=== PATIENT | female | born 1955 | race Caucasian/White ===

== ENCOUNTER → 2016-12-20 | Outpatient (CLI) | payer BC, OTHER ==
--- NOTE | 2016-12-20 12:26 | US ---
EXAMINATION TYPE: US abdomen complete DATE OF EXAM: 12/20/2016 7:46 AM COMPARISON: 2011 CLINICAL HISTORY: 61-year-old female R10.84 Generalized abdominal pain,R94.5 high LFT. Cholecystomy TECHNIQUE: Multiple sonographic images of the abdomen were obtained. FINDINGS: BEAM DOFFER NOTES: Large body habitus, pt is sensitive to any touch on body Liver Length: 14.6 cm CBD: 4 mm Spleen: 11.2 cm Right Kidney: 10.5 x 3.8 x 5.1 cm Left Kidney: 10.4 x 4.4 x 4.8 cm Pancreas: Only a portion of the pancreatic neck and body are seen. Remainder suboptimally visualized secondary to shadowing from bowel gas. Liver: Echogenic and attenuating. Limited assessment as the patient is unable to follow breath-hold c ommands and is sensitive to touch on body Gallbladder: Surgically absent CBD: wnl Spleen: wnl Right Kidney: No hydronephrosis. Left Kidney: No hydronephrosis. Upper IVC: wnl Abd Aorta: wnl IMPRESSION: 1. Correlate for possible hepatic steatosis. There is limited assessment as the patient could not fol low breathing commands and was sensitive to touch. 2. Status post cystectomy. No biliary ductal dilatation.
== END | disposition home or self-care (01) ==
LOC: RADUSWWP 07:25
PROVIDERS: ATTEND Internal Medicine
DX: R10.84 Generalized abdominal pain (principal); R94.5 Abnormal results of liver function studies; Z90.6 Acquired absence of other parts of urinary tract
CPT/HCPCS: 76700

== ENCOUNTER → 2018-08-27 | Outpatient (CLI) | payer OTHER ==
--- NOTE | 2018-08-28 08:28 | CT ---
EXAMINATION TYPE: CT abdomen wo con DATE OF EXAM: 08/27/2018 COMPARISON: Abdominal ultrasound dated 12/20/2016 HISTORY: Right upper quadrant abdominal pain. CT DLP: 725 mGycm Automated exposure control for dose reduction was used. TECHNIQUE: Helical acquisition of images was performed from the lung bases through the top of iliac crest to include entire abdomen. CONTRAST: Performed with Oral Contrast and without IV contrast. FINDINGS: Lack of oral and intravenous contrast limit evaluation of the hollow and solid viscera. LUNG BASES: No significant abnormality is appreciated. LIVER/GB: The liver approaches criteria but does not meet criteria for hepatic steatosis. No focal he patic masses are seen on today's examination. No intrahepatic biliary ductal dilatation. Gallbladder surgically absent. PANCREAS: No significant abnormality is seen. SPLEEN: Splenic arterial calcifications are seen. Spleen is grossly unremarkable. ADRENALS: No significant abnormality is seen. KIDNEYS: There is a lobulated contour of both kidneys although suboptimally evaluated without contras t. No hydronephrosis or nephrolithiasis. No hydroureter. BOWEL: Moderate amount retained colonic stool is seen. LYMPH NODES: No greater than 1 cm short axis intra-abdominal lymph nodes are seen. Few clustered non enlarged right lower quadrant lymph nodes are present. Right lower quadrant lymph node on series 3 im age 50 measures 5 mm and on image 45 measures 6 mm. OSSEOUS STRUCTURES: Mild multilevel degenerative change of the spine is seen.. FREE AIR: No free air is visualized. OTHER: There is a Spigelian hernia contains fat, a surgical clip, and a 1.8 x 0.9 cm ovoid multilobul ated soft tissue density adjacent to the surgical clip. IMPRESSION: 1. RIGHT LATERAL FAT-CONTAINING Spigelian hernia THAT ALSO CONTAINS A SURGICAL CLIP ADJACENT TO A LOB ULATED OVOID 1. 8 BY 0.9 CM MASS. THIS COULD REPRESENT FAT NECROSIS THERE IS AN ADJACENT SURGICAL CLIP OR AN ABNORMAL LYMPH NODE. CORRELATE WITH PRIOR SURGICAL HISTORY. 3. THERE ARE NO ENLARGED LYMPH NODES WITHIN THE ABDOMEN HOWEVER TO LYMPH NODES ARE SEEN ALONG THE ANT IMESENTERIC BORDER IN THE RIGHT LOWER QUADRANT, A SLIGHTLY ATYPICAL LOCATION AND SHORT-TERM FOLLOW-UP IN 3 MONTHS COULD BE PERFORMED FOR THIS ABNORMALITY. 2. LIVER APPROACHES CRITERIA BUT DOES NOT MEET CRITERIA FOR HEPATIC STEATOSIS QUESTIONED ON THE [place] I[place] ULTRASOUND.
== END | disposition home or self-care (01) ==
LOC: RADCTMAIN 15:47
PROVIDERS: ATTEND Internal Medicine
DX: K43.9 Ventral hernia without obstruction or gangrene (principal); Z88.0 Allergy status to penicillin; Z88.2 Allergy status to sulfonamides; Z88.1 Allergy status to other antibiotic agents
CPT/HCPCS: 74150

== ENCOUNTER → 2018-09-05 | Outpatient (CLI) | payer OTHER | END | disposition home or self-care (01) | LOC: LABPAT 14:24 | PROVIDERS: ATTEND Surgery | DX: Z01.818 Encounter for other preprocedural examination (principal); K43.2 Incisional hernia without obstruction or gangrene; Z01.812 Encounter for preprocedural laboratory examination | CPT/HCPCS: 93005 ==

== ENCOUNTER 2018-09-10 06:38 | Day surgery (SDC) | payer OTHER ==
[~2018-09-10 06:38] MED LIST: HEPARIN SODIUM,PORCINE 5,000 UNIT/ML 1 ML VIAL SQ ONE; ceFAZolin IN SWFI 2 GM/20 ML SYRINGE IVP ONE
[2018-09-10] MEDS ORDERED: SCOPOLAMINE 1.5MG/72HR PATCH TRANSDERM ONE (06:47)
[2018-09-10] MEDS ORDERED: ONDANSETRON 4 MG/2 ML VIAL IVP ONE (06:47)
[2018-09-10] MEDS ORDERED: HYDROmorphone 0.5 MG/0.5 ML SYRINGE IVP PRN ×2 (06:47→13:41)
[2018-09-10] MEDS ORDERED: LIDOCAINE 1% 20 ML VIAL (10MG/ML) FOR IV START INTRADERMA PRN (06:47)
[2018-09-10] MEDS ORDERED: DEXAMETHASONE SOD PHOSPHATE 10 MG/ML 1 ML VIAL IV ONE (06:47)
[2018-09-10] MEDS ORDERED: LACTATED RINGERS 1,000 ML IV SCH (06:47)
[2018-09-10] MEDS ORDERED: MIDAZOLAM (PF) 2 MG/2 ML VIAL IVP ONE (08:03)
[2018-09-10] MEDS ORDERED: ePHEDrine SULFATE/0.9% NACL/PF 50 MG/5 ML SYRINGE IV ONE (08:28)
[2018-09-10] MEDS ORDERED: LIDOCAINE 1% INJ 10MG/ML (20 ML MDV) ONE (08:28)
[2018-09-10] MEDS ORDERED: MIDAZOLAM 2 MG/2 ML VIAL ONE (08:28)
[2018-09-10] MEDS ORDERED: ROCURONIUM BROMIDE 10 MG/ML 10 ML VIAL IV ONE (08:28)
[2018-09-10] MEDS ORDERED: PROPOFOL 10 MG/ML 20 ML VIAL IV ONE (08:28)
[2018-09-10] MEDS ORDERED: NEOSTIGMINE 1 MG/ML 10 ML VIAL ONE (08:28)
[2018-09-10] MEDS ORDERED: fentaNYL (PF) 50 MCG/ML 2 ML AMP ONE (08:28)
[2018-09-10] MEDS ORDERED: GLYCOPYRROLATE 0.2 MG/ML 2 ML VIAL ONE (08:28)
[2018-09-10] MEDS ORDERED: SUCCINYLCHOLINE CHLORIDE 100 MG/5 ML SYR IV ONE (08:28)
[2018-09-10] MEDS ORDERED: HYDROmorphone (PF) 1 MG/ML ONE (08:28)
[2018-09-10] MEDS ORDERED: BUPIVACAIN-EPI 0.25%-1:200,000 30 ML VIAL SQ ONE (09:01)
[2018-09-10] MEDS ORDERED: LACTATED RINGERS 1,000 ML IV ONE ×4 (09:17→14:52)
--- NOTE | 2018-09-10 10:18 | P.OP ---
Date of Procedure: 09/10/18 Preoperative Diagnosis: Incarcerated incisional hernia Postoperative Diagnosis: Incarcerated incisional hernia Procedure(s) Performed: Laparoscopic robotic-assisted repair of incarcerated incisional hernia Partial omentectomy Anesthesia: RIVER Surgeon: Pieter Dobson Estimated Blood Loss (ml): 5 Pathology: other (Omentum) Condition: stable Disposition: PACU Description of Procedure: The patient was placed on the operating table in the supine position. The patient received general anesthesia. The patient's abdomen was prepped and draped usual fashion. Using a 5 mm optical trocar under direct visualization the peritoneal cavity was entered in the left upper quadrant. The abdomen was then insufflated. The laparoscope was placed back into the perineal cavity. Next a 8 mm robotic trocar was placed in the right lower quadrant and a 12 mm robotic trocar was placed in the left lower lateral position. And then another 8 mm trocar was placed in the left lateral position. r. The patient's placed in the left side up position. The patient's hernia was in the right lateral position related to previous laparoscopic trocar for cholecystectomy. And the patient was docked to the robot. The incisional hernia was visualized. Using hook cautery the peritoneum over the incisional hernia was excised. The incarcerated omentum was dissected free from the hernia. A portion of the nonviable omentum was transected with left cautery. The fascial opening was repaired using 0V LOC suture. Next a piece of 11 cm round ventral light ST mesh was placed into the. Cavity and secured with 2 OV lock suture. The patient was undocked the robot. The needles were retrieved. The omentum was treated. The fascia of the 12 mm trocar site was closed with 0 Ethibond suture. Skin was closed interrupted 3-0 Monocryl suture. Dermabond dressings was applied. Patient tolerated procedure well and was sent to recovery room stable condition.
--- NOTE | 2018-09-10 10:20 | P.GSHP ---
History of Present Illness H&P Date: 09/10/18 Chief Complaint: Incarcerated incisional hernia This a 63-year-old female who's developed an incarcerated incisional hernia located a right lateral abdominal wall. The hernia appears to be related to the previous laparoscopic cholecystectomy trocar incision. Patient developed an increasing mass in this area. The hernia measures prostate 5 cm in diameter. 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 Smoking Status: Never smoker - Past Family History Father Family Medical History: Cancer Additional Family Medical History / Comment(s): throat cancer Medications and Allergies Home Medications Medication Instructions Recorded Confirmed Type Metoprolol Tartrate 25 mg PO BID 01/03/15 09/10/18 History Cholecalciferol [Vitamin D3] 5,000 unit PO DAILY 09/05/18 09/10/18 History Cyanocobalamin (Vitamin B-12) 1,000 mcg PO DAILY 09/05/18 09/10/18 History [Vitamin B-12] Meclizine [Antivert] 12.5 mg PO DAILY PRN 09/05/18 09/10/18 History Naproxen Sodium [Aleve] 220 mg PO DAILY 09/05/18 09/10/18 History Docusate [Colace] 100 mg PO BID #20 capsule 09/10/18 Rx HYDROcodone/APAP 7.5-325MG [[place] 1 tab PO Q4H PRN 3 Days #18 tab 09/10/18 Rx 7.5-325] Allergies Allergy/AdvReac Type Severity Reaction Status Date / Time meperidine HCl [From Demerol] Allergy Nausea & Verified 01/11/15 13:02 Vomiting Penicillins Allergy Rash/Hives Verified 01/11/15 13:02 Sulfa (Sulfonamide Allergy Swelling Verified 09/05/18 13:26 Antibiotics) tramadol Allergy Nausea & Verified 01/11/15 13:02 Vomiting Surgical - Exam Vital Signs Temp Pulse Resp BP Pulse Ox 98.0 F 76 16 182/102 96 09/10/18 07:22 09/10/18 07:22 09/10/18 07:22 09/10/18 07:22 09/10/18 07:22 - General well developed, well nourished, no distress - Eyes PERRL - ENT normal pinna - Neck no masses - Respiratory normal expansion - Cardiovascular Rhythm: regular - Abdomen Abdomen: soft, non tender Hernia: incisional (5 cm incisional hernia located in the right abdominal wall) Assessment and Plan Assessment: Incisional hernia. We'll perform laparoscopic robotic-assisted repair.
[2018-09-10] MEDS ORDERED: diphenhydrAMINE 50 MG/ML 1 ML VIAL IVP ONE (10:22)
[2018-09-10] MEDS ORDERED: KETOROLAC 30 MG/ML 1 ML VIAL IVP ONE (10:23)
[2018-09-10] MEDS ORDERED: ACETAMINOPHEN TAB 325 MG TAB PO ONE (11:53)
[2018-09-10] MEDS ORDERED: HYDROcodone/APAP 7.5-325MG 1 EACH TAB PO ONE (13:21)
[2018-09-10] MEDS ORDERED: NALOXONE 0.4 MG/ML 1 ML VIAL IV PRN (13:41)
[2018-09-10] MEDS ORDERED: ONDANSETRON 4 MG/2 ML VIAL IVP PRN (13:41)
[2018-09-10] MEDS ORDERED: traMADol 50 MG TAB PO PRN (13:41)
[2018-09-10] MEDS ORDERED: HYDROcodone/APAP 5-325MG 1 EACH TAB PO PRN (13:41)
[2018-09-10] MEDS ORDERED: PROMETHAZINE INJ 25 MG/ML 1 ML VIAL IVPB ONE (14:04)
[2018-09-10] MEDS: ACETAMINOPHEN TAB 325 MG TAB PO PRN ×2 (16:22→21:43)
[2018-09-10 17:38] VITALS: BMI 39.6
--- NOTE | 2018-09-10 21:51 | P.CONS ---
History of Present Illness - Reason for Consult Consult date: 09/10/18 Medical management - Chief Complaint Incarcerated incisional hernia - History of Present Illness Patient is a 63-year-old female with a known history of hypertension, osteoarthritis was admitted to the hospital due to incarcerated incisional hernia and repair. Patient developed incarcerated incisional hernia on the right lateral abdominal wall likely related to previous laparoscopic cholecystectomy incision. Patient tolerated procedure very well. Currently denied any complaints of chest pain or shortness of breath. Pain is fairly controlled. Patient does not want any Ves[place] and pain medications otherwise. No fever no chills. Patient does take metoprolol for blood pressure and is also on follow-up with cardiology clinic. Review of Systems Constitutional: Patient denies any fever or chills . No generalized weakness or weight loss. Abdomen: Patient denied nausea vomiting and diarrhea and abdominal pain. Cardiovascular: Patient denies any chest pain or short of breath no palpitations. Respiratory: patient denied any cough is from production. No shortness of breath Neurologic: Patient denied any numbness or tingling headache. Musculoskeletal: Patient denies any complaints of joint swelling or deformity. Skin: Negative Psychiatric: Negative Endocrine: No heat or cold intolerance. No recent weight gain. Genitourinary: No dysuria or hematuria. 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 Smoking Status: Never smoker - Past Family History Father Family Medical History: Cancer Additional Family Medical History / Comment(s): throat cancer Medications and Allergies Home Medications Medication Instructions Recorded Confirmed Type Metoprolol Tartrate 25 mg PO BID 01/03/15 09/10/18 History Cholecalciferol [Vitamin D3] 5,000 unit PO DAILY 09/05/18 09/10/18 History Cyanocobalamin (Vitamin B-12) 1,000 mcg PO DAILY 09/05/18 09/10/18 History [Vitamin B-12] Meclizine [Antivert] 12.5 mg PO DAILY PRN 09/05/18 09/10/18 History Naproxen Sodium [Aleve] 220 mg PO DAILY 09/05/18 09/10/18 History Docusate [Colace] 100 mg PO BID #20 capsule 09/10/18 Rx HYDROcodone/APAP 7.5-325MG [[place] 1 tab PO Q4H PRN 3 Days #18 tab 09/10/18 Rx 7.5-325] Allergies Allergy/AdvReac Type Severity Reaction Status Date / Time meperidine HCl [From Demerol] Allergy Nausea & Verified 09/10/18 17:41 Vomiting Penicillins Allergy Rash/Hives Verified 09/10/18 17:41 Sulfa (Sulfonamide Allergy Swelling Verified 09/10/18 17:41 Antibiotics) tramadol Allergy Nausea & Verified 09/10/18 17:41 Vomiting Physical Exam Vitals: Vital Signs Temp Pulse Resp BP BP Pulse Ox 09/10/18 14:39 94 18 136/82 96 09/10/18 13:44 95 16 136/82 97 09/10/18 12:04 77 18 144/82 96 09/10/18 11:49 82 16 144/84 96 09/10/18 11:34 84 16 146/84 92 L 09/10/18 11:24 82 16 136/81 92 L 09/10/18 11:09 76 16 144/70 93 L 09/10/18 10:54 70 16 147/76 94 L 09/10/18 10:39 68 16 138/74 96 09/10/18 10:24 68 16 133/70 97 09/10/18 10:09 67 16 132/61 97 09/10/18 09:54 97.7 F 68 14 114/69 94 L 09/10/18 07:22 98.0 F 76 16 182/102 96 Intake and Output 09/10/18 09/10/18 09/10/18 06:59 14:59 22:59 Intake Total 2960 Output Total 5 Balance 2955 Intake: IV 2960 Output: Estimated Blood Loss 5 PHYSICAL EXAMINATION: Patient is lying in the bed comfortably, no acute distress, awake alert and oriented.. HEENT: Normocephalic. Neck is supple. Pupils reactive. Nostrils clear. Oral cavity is moist. Ears reveal no drainage. Neck reveals no JVD, carotid bruits, or thyromegaly. CHEST EXAMINATION: Trachea is central. Symmetrical expansion. Lung richter clear to auscultation and percussion. CARDIAC: Normal S1, S2 with no gallops. No murmurs ABDOMEN: Soft. Bowel sounds present. No organomegaly. No abdominal bruits. Surgical site is bandaged. Extremities: reveal no edema. No clubbing or cyanosis Neurologically awake, alert, oriented x3 with well-coordinated movements. No focal deficits noted Skin: No rash or skin lesions. Psychiatric: Coperative. Nonsuicidal Musculoskeletal: No joint swelling or deformity. Normal range of motion. Assessment and Plan Assessment: Status post repair of incarcerated right lateral abdominal wall incisional hernia. Postoperative day 0 Hypertension Tachycardia Osteoarthritis with history of joint replacement History of cholecystectomy DVT prophylaxis. Lovenox subcu Plan: Patient will be continued on pain management with Dilaudid and Vesuvius. Continue with home blood pressure medications in the form of metoprolol 25 mg twice a day. Continue the IV hydration and DVT prophylaxis. Incentive spirometry. Further recommendations based on clinical course. Thank you for your consult.
[2018-09-11] MEDS: ACETAMINOPHEN TAB 325 MG TAB PO PRN ×2 (04:00→10:08)
[2018-09-11] MEDS ORDERED: METOPROLOL TARTRATE 25 MG TAB PO SCH (09:00)
[2018-09-11] MEDS ORDERED: ENOXAPARIN 40 MG/0.4 ML SYRINGE SQ SCH (09:00)
[2018-09-11 11:34] VITALS: BP 126/76; PULSE 62; RESP 18; TEMP 98.1
--- NOTE | 2018-09-11 12:11 | P.DS ---
Providers Date of admission: 09/10/2018 Expected date of discharge: 09/11/18 Attending physician: Pieter Dobson Consults: 09/10/18 13:43 Consult Physician Routine Consulting Provider: Frandy Gallardo Consult Reason/Comments: Medical management Do you want consulting provider notified?: Yes Primary care physician: Chino Coppola Hospital Course: This is a 63-year-old female who underwent laparoscopic robotic-assisted repair of incarcerated incisional hernia. Patient was admitted to the hospital postoperatively for pain control. Her postoperative stay was a marble. Please see hospital chart for details. Procedures: Laparoscopic robotic system repair of incisional hernia Patient Condition at Discharge: Good Plan - Discharge Summary Discharge Rx Participant: No New Discharge Prescriptions: New Docusate [Colace] 100 mg PO BID #20 capsule HYDROcodone/APAP 7.5-325MG [[place] 7.5-325] 1 tab PO Q4H PRN 3 Days #18 tab PRN Reason: Pain No Action Metoprolol Tartrate 25 mg PO BID Naproxen Sodium [Aleve] 220 mg PO DAILY Cyanocobalamin (Vitamin B-12) [Vitamin B-12] 1,000 mcg PO DAILY Cholecalciferol [Vitamin D3] 5,000 unit PO DAILY Meclizine [Antivert] 12.5 mg PO DAILY PRN PRN Reason: Vertigo Discharge Medication List Metoprolol Tartrate 25 mg PO BID 01/03/15 [History] Cholecalciferol [Vitamin D3] 5,000 unit PO DAILY 09/05/18 [History] Cyanocobalamin (Vitamin B-12) [Vitamin B-12] 1,000 mcg PO DAILY 09/05/18 [ History] Meclizine [Antivert] 12.5 mg PO DAILY PRN 09/05/18 [History] Naproxen Sodium [Aleve] 220 mg PO DAILY 09/05/18 [History] Docusate [Colace] 100 mg PO BID #20 capsule 09/10/18 [Rx] HYDROcodone/APAP 7.5-325MG [[place] 7.5-325] 1 tab PO Q4H PRN 3 Days #18 tab 09/10 [Rx] Follow up Appointment(s)/Referral(s): Pieter Dobson MD [STAFF PHYSICIAN] - 09/17/18 8:50 am Patient Instructions/Handouts: *Surgery [facility] - (Anesthesia) Discharge Instructions Outpatient Surgery, Umbilical Hernia (DC) Activity/Diet/Wound Care/Special Instructions: regular diet as tolerated. fluids always encouraged no heavy lifting. nothing strenuous shower daily. continue to wear abdominal binder until recheck Call office for any fever, chills, increased pain not covered with over the counter pain meds, increased redness or discolored drainage from puncture sites or any concerns. continue to use Incentive spirometery at home. Per DR Bronson leavitt to use plain tylenol or aleve at home for pain in place of narcotic. ( due to pt sensitivity)
== END 2018-09-11 12:11 | disposition home or self-care (01) ==
LOC: OR 06:38 → 6PED 09:58 → OR 09-11 12:11
PROVIDERS: ATTEND Surgery
DX: K43.0 Incisional hernia with obstruction, without gangrene (principal); I10 Essential (primary) hypertension; M19.90 Unspecified osteoarthritis, unspecified site; F41.9 Anxiety disorder, unspecified; R42 Dizziness and giddiness; Z88.0 Allergy status to penicillin; Z88.2 Allergy status to sulfonamides; Z88.5 Allergy status to narcotic agent; Z88.8 Allergy status to other drugs, medicaments and biological substances; Z96.651 Presence of right artificial knee joint; Z79.1 Long term (current) use of non-steroidal anti-inflammatories (NSAID); Z79.899 Other long term (current) drug therapy; Z90.49 Acquired absence of other specified parts of digestive tract
CPT/HCPCS: 86900; 86901; 86850; 36415; 49655; C1781; J2250 ×2; J1200; J1644; J1100; J2550; J2710; J2405; J2001; J3010; J1885; J1170; J0330; J2704; J0690; 88305

== ENCOUNTER → 2019-08-15 | Outpatient (CLI) | payer OTHER ==
--- NOTE | 2019-08-15 16:55 | CT ---
EXAMINATION TYPE: CT abdomen pelvis wo con DATE OF EXAM: 08/15/2019 COMPARISON: CT abdomen dated 08/27/2018 HISTORY: Rt flank pain by ribs/breast. Hx hernia repair CT DLP: 1140.40 mGycm Automated exposure control for dose reduction was used. TECHNIQUE: Helical acquisition of images was performed from the lung bases through the pelvis. FINDINGS: LUNG BASES: There is a right middle lobe 5 mm solid pulmonary nodule on series 3 image 1 that is part ially visualized. Pleural parenchymal scarring is seen at the left lung base with more nodular compon ent medially on image 19 measuring 7 mm. LIVER/GB: The previously seen hepatic steatosis has improved. Criteria for hepatic steatosis are no l onger met although values are borderline. The gallbladder is surgically absent. PANCREAS: No significant abnormality is seen. SPLEEN: No significant abnormality is seen. Calcified splenic artery versus small pseudoaneurysm luis uring 9 mm. ADRENALS: No significant abnormality is seen. KIDNEYS: Again there is a lobulated contour of both kidneys, suboptimally evaluated without contrast. Masses are not excluded without contrast. Punctate 2 mm left upper pole nonobstructing calculus is s een. No hydronephrosis. FREE AIR: No free air is visualized ADENOPATHY: No greater than 1 cm short axis lymph node is seen in the abdomen or pelvis. OSSEOUS STRUCTURES: Mild multilevel degenerative change of the spine are seen. BOWEL: There are scattered sigmoid diverticula without pericolonic fat stranding. Mild degree coloni c fecal stasis is seen. No dilated large or small bowel. OTHER: There has been surgical repair of the previously seen right lateral flank hernia. Subcutaneous scarring is noted. There is a very small one 2 mm fat filled periumbilical hernia. IMPRESSION: 1. SURGICALLY REPAIRED RIGHT LATERAL ABDOMINAL WALL HERNIA. 2. PREVIOUSLY SEEN PROMINENT LYMPH NODES IN THE RIGHT LOWER QUADRANT ARE STABLE AND NONENLARGED. 3. AGAIN THE LIVER APPROACHES BUT DOES NOT MEET CRITERIA FOR HEPATIC STEATOSIS QUESTIONED ON THE P RIOR ULTRASOUND. 4. SIGMOID DIVERTICULOSIS WITHOUT EVIDENCE OF ACUTE DIVERTICULITIS. 5. PUNCTATE NONOBSTRUCTING LEFT UPPER POLE RENAL CALCULUS.
== END | disposition home or self-care (01) ==
LOC: RADCTMAIN 12:43
PROVIDERS: ATTEND Internal Medicine
DX: K46.9 Unspecified abdominal hernia without obstruction or gangrene (principal); K57.30 Diverticulosis of large intestine without perforation or abscess without bleeding; N20.0 Calculus of kidney; Z98.890 Other specified postprocedural states; Z88.0 Allergy status to penicillin; Z88.2 Allergy status to sulfonamides; Z88.5 Allergy status to narcotic agent
CPT/HCPCS: 74176

== ENCOUNTER → 2019-09-18 | Outpatient (CLI) | payer OTHER ==
--- NOTE | 2019-09-18 15:20 | CT ---
EXAMINATION TYPE: CT chest wo con DATE OF EXAM: 09/18/2019 COMPARISON: None HISTORY: Right sided chest pain. CT DLP: 334 mGycm, Automated exposure control for dose reduction was used. CONTRAST: None TECHNIQUE: Axial images were obtained at 1 mm thick sections at 10 mm intervals. This will limit po rtions of the examination which may not be visualized within the [id number]. Images were obtained in the prone and supine views. FINDINGS: Portion of the thyroid visualized is normal. There are couple of calcified granuloma within the posterior lateral right midlung. There is a small peripheral density measuring 0.3 cm in the right middle lobe. Series 10 image 29. There are multiple lymph nodes within the mediastinum. Some of these are prominent such as a 1.1 cm lymph node in the pretracheal space. A 1.3 cm lymph node is in the superior pretracheal space adjacen t to the aortic arch. Majority of these appear shotty less than 1 cm in diameter. There is an enlarge d subcarinal density measuring 2.1 cm. Some fullness at the right hilum could be some underlying jero opathy or mass. The ascending aorta diameter at the level of the main pulmonary artery is 3.9 cm. The main pulmonary artery diameter at the bifurcation is 3.[address] sections are obtained through the upper abdomen. Abdomen is essentially unremarkable. IMPRESSIONS: 1. Scattered mediastinal lymph nodes some of which are enlarged by CT criteria. Additional complete e valuation is recommended with standard CT chest with contrast, if not contraindicated, for complete e valuation for the mediastinum at this time. 2. Small peripheral right middle lobe density. This should be followed up in 6 months.
== END | disposition home or self-care (01) ==
LOC: RADCTMAIN 14:05
PROVIDERS: ATTEND Internal Medicine
DX: J98.4 Other disorders of lung (principal); R59.0 Localized enlarged lymph nodes; Z88.0 Allergy status to penicillin; Z88.2 Allergy status to sulfonamides; Z88.5 Allergy status to narcotic agent
CPT/HCPCS: 71250

== ENCOUNTER → 2019-09-26 | Outpatient (CLI) | payer OTHER ==
--- NOTE | 2019-09-27 23:46 | CT ---
EXAMINATION TYPE: CT chest w con DATE OF EXAM: 09/26/2019 COMPARISON: HRCT 09/18/2019 HISTORY: 64-year-old female Right lower chest pain TECHNIQUE: Contiguous axial scanning of the chest after the administration of 100 mL of Isovue 300. Coronal/sagittal reconstructions performed. CT DLP: 640.8mGycm. Automatic exposure control utilized for a dose reduction. FINDINGS: Heart normal size without pericardial effusion. Aorta normal caliber with conventional branching anatomy. Mediastinal lymphadenopathy is confirmed. Upper right paratracheal lymph nodes measuring up to 1.1 cm. Lower right paratracheal lymph nodes measuring up to 1.2 cm. AP window lymph node at 9 mm. Subcarinal lymph node at 2.2 cm. Right hilar lymph node measuring 1.8 cm. Left hilar lymph nodes measuring up to 1.3 cm. Evaluation of the lungs shows a calcified granuloma peripheral right midlung. A few scattered foreign 5 mm pulmonary nodules. On the right, these are either located along the subpleural region or along the major fissure. There is a single 4 mm peripheral left upper lobe pulmonary nodule, axial image 16, not in a perilymp hatic location. Tiny hiatal hernia. Spleen upper limits of normal in size at 13.1 cm. Cholecystectomy clips. Bones: [facility] within the mid to lower thoracic spine. IMPRESSION: 1. Confirmation of mediastinal and bilateral hilar lymphadenopathy measuring up to 2.2 cm. Sarcoidos is, systemic mycobacterial/fungal infections, pneumoconiosis, lymphoma, and metastatic disease are in the differential. 2. Given a few 5 mm pulmonary nodules either subpleural or along the major fissure (perilymphatic dis tribution), sarcoidosis may be higher in the differential. Appropriate further workup and evaluation recommended. 3. Additional 4 mm left upper lobe pulmonary nodule. Three-month follow-up CT to reassess all of thes e findings. 4. Tiny hiatal hernia.
== END ==
LOC: RADCTMAIN 07:47
PROVIDERS: ATTEND Internal Medicine
DX: D86.9 Sarcoidosis, unspecified (principal); A31.9 Mycobacterial infection, unspecified; B49 Unspecified mycosis; R91.1 Solitary pulmonary nodule; R59.0 Localized enlarged lymph nodes
CPT/HCPCS: 71260; Q9967

== ENCOUNTER → 2019-10-20 | Outpatient (CLI) | payer OTHER ==
[2019-10-20 18:42] LABS: African American GFR (CKD) 106.1 (60.0-200.0); Albumin 4.7 g/dL (3.80-4.90); Albumin/Globulin Ratio 2.04 (1.60-3.17); Anion Gap 11.8 mmol/L (4.00-12.00); BUN/Creat Ratio 25.71 Ratio (12.00-20.00); C Reactive Protein, High Sens 2.27 mg/L (0.000-3.000); Calcium 9.8 mg/dL (8.7-10.3); Carbon Dioxide 24.2 mmol/L (21.6-31.8); Globulin 2.3 g/dL (1.6-3.3); Non-African American GFR(CKD) 91.6 (60.0-200.0); Potassium 4.2 mmol/L (3.5-5.5); Total Bilirubin 0.5 mg/dL (0.3-1.2)
== END | disposition home or self-care (01) ==
LOC: LABWHC1 11:00
PROVIDERS: ATTEND Internal Medicine Critical Care Medicine
DX: R06.02 Shortness of breath (principal); R59.9 Enlarged lymph nodes, unspecified
CPT/HCPCS: 36415; 80053; 82164; 85652; 86141

== ENCOUNTER → 2020-11-08 | Outpatient (CLI) | payer MEDICARE, OTHER ==
[2020-11-08 16:09] LABS: African American GFR (CKD) >90 (>60 ml/min/1.73 sqM); Blood Urea Nitrogen 21 mg/dL (7-17); Non-African American GFR(CKD) 89 (>60 ml/min/1.73 sqM)
--- NOTE | 2020-11-08 16:44 | CT ---
EXAMINATION TYPE: CT chest wo con DATE OF EXAM: 11/08/2020 COMPARISON: 09/26/2019 HISTORY: SOB, hx sacoidosis. CT DLP: 592.[address] of the chest was performed with lung and mediastinal window settings submitted. The la ck of contrast limits evaluation of the vascular, mediastinal and parenchymal structures including th e upper abdomen. LUNGS: The lungs are clear and free of infiltrate. No atelectasis. Calcified granuloma right lower lo be. Pleural-based nodule right upper lobe anteriorly image 29 measures 3 mm. 3 mm pulmonary nodule ri ght minor fissure. Overall no change relative to prior examination. No new nodules seen. No pleural e ffusion. No CT evidence of interstitial lung disease. MEDIASTINUM/RAS: Thoracic aorta is of normal caliber with limited evaluation given lack of contrast . The heart is not enlarged. No evidence for mediastinal mass. No lymph nodes greater than 1cm. UPPER ABDOMEN: No significant abnormality is seen. OTHER: No significant other abnormality. IMPRESSION: 1. Stable nonspecific lung nodularity.
== END | disposition home or self-care (01) ==
LOC: RADCTMAIN 15:20
PROVIDERS: ATTEND Internal Medicine Critical Care Medicine
DX: R91.8 Other nonspecific abnormal finding of lung field (principal); D86.9 Sarcoidosis, unspecified
CPT/HCPCS: 36415; 71250; 82565; 84520

== ENCOUNTER → 2023-09-23 | Outpatient (CLI) | payer MEDICARE ==
--- NOTE | 2023-09-23 11:45 | CT ---
EXAMINATION TYPE: CT chest wo con CT DLP: 880 mGycm, Automated exposure control for dose reduction was used. 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 Sagittal and coronal reformats were created for review. Contrast used: mL of (None if empty) Oral contrast used: (None if empty) FINDINGS: LUNGS/ PLEURA: Calcified granuloma along the right major fissure. No focal consolidation, pneumothora x or pleural fusion. There is a small right middle lobe pulmonary nodule measuring 2 mm there is unch anged. AIRWAY: Patent and unremarkable. HEART: Size within normal limits. Mild coronary artery atherosclerosis. MEDIASTINUM: No gross evidence of adenopathy. Scattered partially calcified lymph nodes in the medias tinum. VASCULATURE: No aortic aneurysm. MUSCULOSKELETAL: No acute osseous abnormalities SOFT TISSUES/LYMPH NODES: Unremarkable. LOWER NECK: No significant findings. UPPER ABDOMEN: Diffuse low-attenuation to the liver parenchyma. IMPRESSION: Partially calcified lymph nodes in the mediastinum which could be secondary to chronic granulomatous disease. No lymphadenopathy or interstitial lung disease findings to suggest pulmonary sarcoidosis. Right major fissure granuloma is unchanged. Hepatic steatosis.
== END | disposition home or self-care (01) ==
LOC: RADCTMAIN 10:30
PROVIDERS: ATTEND Internal Medicine Critical Care Medicine
DX: K76.0 Fatty (change of) liver, not elsewhere classified (principal); J98.4 Other disorders of lung; D86.9 Sarcoidosis, unspecified; I89.8 Other specified noninfective disorders of lymphatic vessels and lymph nodes
CPT/HCPCS: 71250

== ENCOUNTER → 2023-09-26 | Outpatient (CLI) | payer MEDICARE ==
[2023-09-26 16:03] LABS: Basophils # (A) 0.06 X 10*3/uL (0.00-0.10); Basophils % (A) 0.9 %; Eosinophils % (A) 4.4 %; HCT 44.1 % (37.2-46.3); HGB 15.1 g/dL (12.0-15.0); Lymphocytes # (A) 3.63 X 10*3/uL (0.90-5.00); Lymphocytes % (A) 53.5 %; MCH 30.4 pg (27.0-32.0); MCHC 34.2 g/dL (32.0-37.0); MCV 88.9 FL (80.0-97.0); Mean Platelet Volume 9.5 FL (9.5-12.2); Monocytes # (A) 0.49 X 10*3/uL (0.20-1.00); Monocytes % (A) 7.2 %; NRBC Per 100 WBC 0 X 10*3/uL (0.00-0.01); Neutrophils # (A) 2.26 X 10*3/uL (1.80-7.70); Neutrophils % (A) 33.4 %; Platelet Count 312 X 10*3/uL (140-440); RBC 4.96 X 10*6/uL (4.10-5.20); RDW 12.4 % (11.5-14.5); WBC 6.78 X 10*3/uL (4.50-10.00)
[2023-09-26 16:17] LABS: ALT 23 U/L (8-44); AST 20 U/L (13-35); Albumin 4.7 g/dL (3.8-4.9); Albumin/Globulin Ratio 1.74 Ratio (1.60-3.17); Alkaline Phosphatase 87 U/L (41-126); BUN/Creat Ratio 24.71 Ratio (12.00-20.00); Blood Urea Nitrogen 17.3 mg/dL (9.0-27.0); Carbon Dioxide 24.4 mmol/L (21.6-31.8); Chloride 104 mmol/L (96-109); Globulin 2.7 g/dL (1.6-3.3); Glucose 121 mg/dL (70-110); Potassium 4.8 mmol/L (3.5-5.5); Sodium 142 mmol/L (135-145); Total Bilirubin 0.4 mg/dL (0.3-1.2); Total Protein 7.4 g/dL (6.2-8.2)
== END | disposition home or self-care (01) ==
LOC: LABWHC1 10:41
PROVIDERS: ATTEND Internal Medicine Critical Care Medicine
DX: D86.9 Sarcoidosis, unspecified (principal)
CPT/HCPCS: 36415; 80053; 82164; 85025